=== PATIENT | male | born 1965 | race Caucasian/White ===

== ENCOUNTER 2020-08-14 15:26 | Emergency (ER) | payer SELFPAY ==
[2020-08-14] MEDS ORDERED: amLODIPine 5 MG TAB PO ONE (16:58)
[2020-08-14] MEDS ORDERED: OXYMETAZOLINE 0.05% NASAL SPRAY NS ONE (16:58)
[2020-08-14 17:39] LABS: Basophils # (Auto) 0.1 K/mm3 (0.0-0.1); Basophils % (Auto) 0.8 % (0.0-1.8); Eosinophils # (Auto) 0.1 K/mm3 (0.0-0.4); Eosinophils % (Auto) 2.1 % (0.0-4.3); Hemoglobin 13.3 gm/dl (11.8-15.2); Lymphocytes # (Auto) 2.4 K/mm3 (1.2-5.4); Lymphocytes % (Auto) 35.6 % (13.4-35.0); Mean Corpuscular HGB Conc 34 % (32-34); Mean Corpuscular Volume 78 fl (84-94); Monocytes # (Auto) 0.4 K/mm3 (0.0-0.8); Monocytes % (Auto) 6.7 % (0.0-7.3); Platelet Count 253 K/mm3 (140-440); Red Blood Count 4.98 M/mm3 (3.65-5.03); Red Cell Distribution Width 14.1 % (13.2-15.2)
[2020-08-14 17:58] LABS: Alanine Aminotransferase 21 units/L (7-56); Albumin 4.4 g/dL (3.9-5); Blood Urea Nitrogen 11 mg/dL (9-20); Calcium 9.7 mg/dL (8.4-10.2); Hemolysis Index 5
[2020-08-14 18:01] LABS: BUN/Creatinine Ratio 18
[2020-08-14 18:06] LABS: INR 0.92 (0.87-1.13)
[2020-08-14 18:07] LABS: Partial Thromboplastin Time 28.6 Sec. (24.2-36.6)
[2020-08-14 18:48] VITALS: BP 168/102
--- NOTE | 2020-08-14 18:52 | Emergency Department Report ---
ED General Adult HPI - General Chief complaint: Nosebleed Stated complaint: NON STOP NOSE BLEED Time Seen by Provider: 08/14/20 16:56 Source: patient Mode of arrival: Ambulatory Limitations: No Limitations - History of Present Illness Initial comments: Patient is a 54-year-old male presents emergency room complaints of epistaxis that occurred at 9 AM this morning. He denies any trauma. He denies any sneezing or coughing. States that it just started spontaneously. He states that he was able to hold pressure and it stopped. He states a few hours later it began again and he held pressure and it stopped again. He states at first he was feeling it dripped behind the back of his throat. He denies any cough, shortness of breath, chest pain, vision changes, headache, numbness, weakness. He states he previously had a history of high blood pressure but last year when he saw the doctor his blood pressure was normal and he did not need medications at that time. He denies any allergies to medications. - Related Data Previous Rx's Medication Instructions Recorded Last Taken Type Ciprofloxacin HCl [Cipro] 500 mg PO BID #14 tablet 01/27/14 Unknown Rx HYDROcodone/APAP 5-325 [[place] 1 each PO Q6HR PRN #16 tablet 01/27/14 Unknown Rx 5/325 mg] Ibuprofen [Motrin] 600 mg PO Q6H PRN #20 tablet 01/27/14 Unknown Rx metroNIDAZOLE [Flagyl] 500 mg PO BID #14 tablet 01/27/14 Unknown Rx amLODIPine 10 mg PO DAILY #30 tab 08/14/20 Unknown Rx Allergies Allergy/AdvReac Type Severity Reaction Status Date / Time No Known Allergies Allergy Unverified 01/27/14 13:05 ED Review of Systems ROS: Stated complaint: NON STOP NOSE BLEED Other details as noted in HPI Comment: All other systems reviewed and negative ED Past Medical Hx - Past Medical History Previous Medical History?: No - Surgical History Past Surgical History?: Yes Hx Cholecystectomy: Yes - Social History Smoking Status: Never Smoker Substance Use Type: None - Medications Home Medications: Home Medications Medication Instructions Recorded Confirmed Last Taken Type Ciprofloxacin HCl [Cipro] 500 mg PO BID #14 tablet 01/27/14 Unknown Rx HYDROcodone/APAP 5-325 [[place] 1 each PO Q6HR PRN #16 tablet 01/27/14 Unknown Rx 5/325 mg] Ibuprofen [Motrin] 600 mg PO Q6H PRN #20 tablet 01/27/14 Unknown Rx metroNIDAZOLE [Flagyl] 500 mg PO BID #14 tablet 01/27/14 Unknown Rx amLODIPine 10 mg PO DAILY #30 tab 08/14/20 Unknown Rx ED Physical Exam - General Limitations: No Limitations General appearance: alert, in no apparent distress - Head Head exam: Present: atraumatic, normocephalic - Eye Eye exam: Present: normal appearance - ENT ENT exam: Present: mucous membranes moist, other (normal left naris, there is small amount of dried blood in the right naris, no active bleeding, no blood present in the oropharynx) - Respiratory Respiratory exam: Present: normal lung sounds bilaterally. Absent: respiratory distress, wheezes, rales, rhonchi, stridor, chest wall tenderness, accessory muscle use, decreased breath sounds, prolonged expiratory - Cardiovascular Cardiovascular Exam: Present: regular rate, normal rhythm, normal heart sounds. Absent: systolic murmur, diastolic murmur, rubs, gallop - Neurological Exam Neurological exam: Present: alert, oriented X3, CN II-XII intact, normal gait. Absent: motor sensory deficit - Psychiatric Psychiatric exam: Present: normal affect, normal mood - Skin Skin exam: Present: warm, dry, intact ED Course Vital Signs 08/14/20 08/14/20 15:38 18:47 Temperature 98.0 F Pulse Rate 77 Respiratory 14 16 Rate Blood Pressure 184/111 Blood Pressure 168/102 [Right] O2 Sat by Pulse 98 Oximetry ED Medical Decision Making - Lab Data Result diagrams: 08/14/20 17:07 08/14/20 17:07 Labs 08/14/20 08/14/20 08/14/20 17:07 17:07 17:07 WBC 6.6 RBC 4.98 Hgb 13.3 Hct 39.0 MCV 78 L MCH 27 L MCHC 34 RDW 14.1 Plt Count 253 Lymph % (Auto) 35.6 H [place] % (Auto) 6.7 Eos % (Auto) 2.1 Baso % (Auto) 0.8 Lymph # (Auto) 2.4 [place] # (Auto) 0.4 Eos # (Auto) 0.1 Baso # (Auto) 0.1 Seg Neutrophils % 54.8 Seg Neutrophils # 3.6 PT 12.2 INR 0.92 APTT 28.6 Sodium 142 Potassium 3.4 L Chloride 105.1 Carbon Dioxide 26 Anion Gap 14 BUN 11 Creatinine 0.6 L Estimated GFR > 60 BUN/Creatinine Ratio 18 Glucose 97 Calcium 9.7 Total Bilirubin 0.40 AST 21 ALT 21 Alkaline Phosphatase 92 Total Protein 7.2 Albumin 4.4 Albumin/Globulin Ratio 1.6 Vital Signs 08/14/20 08/14/20 15:38 18:47 Temperature 98.0 F Pulse Rate 77 Respiratory 14 16 Rate Blood Pressure 184/111 Blood Pressure 168/102 [Right] O2 Sat by Pulse 98 Oximetry - Medical Decision Making Patient is a 54-year-old male presents emergency room complaints of epistaxis that occurred at 9 AM this morning. He denies any trauma. He denies any sneezing or coughing. States that it just started spontaneously. He states that he was able to hold pressure and it stopped. He states a few hours later it began again and he held pressure and it stopped again. He states at first he was feeling it dripped behind the back of his throat. He denies any cough, shortness of breath, chest pain, vision changes, headache, numbness, weakness. He states he previously had a history of high blood pressure but last year when he saw the doctor his blood pressure was normal and he did not need medications at that time. He denies any allergies to medications. initial vitals with elevated BP. on exam:normal left naris, there is small amount of dried blood in the right naris, no active bleeding, no blood present in the oropharynx. Symptoms likely related to hypertensive urgency. Labs are normal. Reference range placed in the right nostril and patient held pressure for 10 minutes, patient was improved in the emergency department for several hours and had no further episodes of bleeding. Patient given amlodipine while in the emergency department and blood pressure improved. Patient will be given prescription for amlodipine. Advised patient Please take medication as prescribed. Please only use Afrin spray if nose begins to bleed and then hold pressure for 10 minutes straight and do not let go. Please do not use Afrin spray more than 3 days and do not use more than once every 12 hours. Please eat a low-sodium/low salt diet. Increase your water intake. Incorporate 30 to 60 minutes of daily exercise. These follow-up with your primary care doctor for reexamination. Return to emergency room immediately for any new or worsening symptoms. Critical care attestation.: If time is entered above; I have spent that time in minutes in the direct care of this critically ill patient, excluding procedure time. ED Disposition Clinical Impression: Epistaxis, Hypertensive urgency Disposition: DC-01 TO HOME OR SELFCARE Is pt being admited?: No Does the pt Need Aspirin: No Condition: Stable Instructions: Nosebleed, Adult, Hypertension, Adult Additional Instructions: Please take medication as prescribed. Please only use Afrin spray if nose begins to bleed and then hold pressure for 10 minutes straight and do not let go. Please do not use Afrin spray more than 3 days and do not use more than once every 12 hours. Please eat a low-sodium/low salt diet. Increase your water intake. Incorporate 30 to 60 minutes of daily exercise. These follow-up with your primary care doctor for reexamination. Return to emergency room immediately for any new or worsening symptoms. Prescriptions: amLODIPine 10 mg PO DAILY #30 tab Referrals: PRIMARY CARE, [Primary Care Provider] - 2-3 Days Time of Disposition: 18:50 Print Language: BARBADIAN
== END 2020-08-14 18:57 | disposition home or self-care (01) ==
LOC: ED 15:26
DX: I16.0 Hypertensive urgency (principal); R04.0 Epistaxis; Z79.899 Other long term (current) drug therapy; Z90.49 Acquired absence of other specified parts of digestive tract
CPT/HCPCS: 36415; 80053; 85025; 85610; 85730